=== PATIENT | female | born 1940 | race Caucasian/White ===

== ENCOUNTER 2017-11-13 07:47 | Day surgery (SDC) | payer MEDICARE ==
[~2017-11-13 07:47] MED LIST: Sodium Chloride 0.9% 1000 ML 1,000 ML IV SCH; Sodium Chloride 0.9% 1000 ML 1,000 ML ONE
[2017-11-13] MEDS ORDERED: DEMEROL 50 MG IJ ONE ×2 (07:48)
[2017-11-13] MEDS ORDERED: VERSED 5 MG/5 ML IJ ONE (07:48)
[2017-11-13] MEDS ORDERED: VERSED 5 MG/5 ML IV ONE (07:48)
[2017-11-13 11:42] VITALS: PULSE 54
[2017-11-13 11:50] VITALS: BP 137/78; O2SAT 95
[2017-11-13] MEDS ORDERED: Sodium Chloride 0.9% 10 ML FLUSH Syringe PORT FLUSH PRN (13:02)
--- NOTE | 2017-11-13 14:44 | OP ---
SURGERY DATE/TIME: 11/13/2017919 PREOPERATIVE DIAGNOSIS: Follow up colon cancer. POSTOPERATIVE DIAGNOSIS: Normal anastomosis. The patient had mild diverticulosis. PROCEDURE: Colonoscopy complete. SURGEON: Robert Sanchez M.D. ANESTHESIA: IV sedation 15 minute monitored time. COMPLICATIONS: None. CONDITION: Stable. INDICATION: The patient requiring evaluation. DESCRIPTION OF PROCEDURE: Taken to the endoscopy suite. Left lateral decubitus position. Anal digital examination satisfactory. The scope advanced. This seemed to hang up in the splenic flexure for a while but with care and patience was navigated into the transverse colon side of the splenic flexure and then navigated across the transverse colon to the anastomosis. The anastomosis was normal. There were five or six Nurolon sutures visible and satisfactory. It was wide open. There was no lesion. There were no mucosal lesions during the exam. On circumferential withdrawal there was mild diverticulosis of the sigmoid. The patient tolerated the procedure satisfactorily. Follow up in two years.
== END 2017-11-13 12:00 | disposition home or self-care (01) ==
LOC: SDC 07:47
PROVIDERS: ATTEND Surgery
PROC: 0DJD8ZZ Inspection of Lower Intestinal Tract, Via Natural or Artificial Opening Endoscopic (ICD-10-PCS; principal; 2017-11-13)
DX: K57.90 Diverticulosis of intestine, part unspecified, without perforation or abscess without bleeding (principal); Z85.038 Personal history of other malignant neoplasm of large intestine; E11.9 Type 2 diabetes mellitus without complications; I10 Essential (primary) hypertension; M19.90 Unspecified osteoarthritis, unspecified site; I51.9 Heart disease, unspecified
CPT/HCPCS: 82962; J1642; J2175; J2250

== ENCOUNTER → 2020-11-30 | Day surgery (SDC) | payer MEDICARE ==
--- NOTE | 2020-11-23 07:56 | HP ---
DATE OF SURGERY: 11/30/2020 HISTORY OF PRESENT ILLNESS: The patient is a 80 year-old female presents for follow up colonoscopy. She has a history of colon cancer. She had a right colectomy in [place] four years ago. Last colonoscopy was in 2018 and she had some diverticulosis and no polyps. She denies GI signs or symptoms. PAST MEDICAL HISTORY: Hypertension. Depression. Thyroid. Fibromyalgia. PAST SURGICAL HISTORY: Tonsillectomy. Uterus removed. Right hemicolectomy. ALLERGIES: CODEINE. LISINOPRIL. MEDICATIONS: Propranolol. Hydrochlorothiazide. Thyroid medicine. Cymbalta. FAMILY HISTORY: Thyroid cancer. Colon cancer. Gallbladder disease. SOCIAL HISTORY: None. REVIEW OF SYSTEMS: CONSTITUTIONAL: Denies fever or chills. CHEST: No shortness of breath. CVS: Denies chest pain. ABDOMEN: Denies abdominal pain, nausea, vomiting, diarrhea, constipation or rectal bleeding. PHYSICAL EXAMINATION: GENERAL: No acute distress. CHEST: Nonlabored. No shortness of breath. CVS: Regular rate and rhythm. ABDOMEN: Soft, nontender to palpation. EXTREMITIES: No edema. NEUROLOGIC: Alert. PSYCHIATRIC: Appropriate. IMPRESSION: History of colon cancer. PLAN: Colonoscopy with Dr. Robert Sanchez. As dictated by Belen Bonilla NP.
[~2020-11-30] MED LIST changes: +DEMEROL 50 MG IJ ONE; +Lactated Ringers 1,000 ML IV SCH; -Sodium Chloride 0.9% 1000 ML 1,000 ML IV SCH; -Sodium Chloride 0.9% 1000 ML 1,000 ML ONE; +VERSED 5 MG/5 ML IV ONE
[2020-11-30 10:09] VITALS: O2SAT 93
[2020-11-30 11:02] VITALS: PULSE 63
[2020-11-30 11:48] VITALS: BP 145/68
--- NOTE | 2020-12-01 08:10 | OP ---
SURGERY DATE/TIME: 11/30/2020 0900 PREOPERATIVE DIAGNOSIS: Follow up colon cancer. POSTOPERATIVE DIAGNOSIS: Mild sigmoid diverticulosis, moderate internal hemorrhoids. PROCEDURE: Colonoscopy complete to cecum. SURGEON: Robert Sanchez M.D. [employer] MANAGER: ANAM Garnett student. ANESTHESIA: IV sedation 15 minutes monitored. COMPLICATIONS: None. CONDITION: Stable. INDICATION: A patient requiring evaluation. DESCRIPTION OF PROCEDURE: IV sedation was titrated. It was monitored. The lowest reading was 82%. Comfort level was satisfactory. Anal digital examination satisfactory. Scope introduced. There was moderate internal hemorrhoids. There was mild sigmoid diverticulosis. The anastomosis right colon in the midline. Ileotransverse colostomy was normal. The base was normal. The blind limb was small and was normal. The left transverse colon, splenic, descending was satisfactory, mild diverticulosis sigmoid, rectum, anus. The patient tolerated the procedure satisfactorily. Anticipated follow up three years. She tolerated the procedure well under IV sedation. Withdrawal time was not monitored as there had already been colon resection.
== END | disposition home or self-care (01) ==
LOC: SDC 06:53
PROVIDERS: ATTEND Surgery
DX: Z08 Encounter for follow-up examination after completed treatment for malignant neoplasm (principal); Z85.038 Personal history of other malignant neoplasm of large intestine; Z90.49 Acquired absence of other specified parts of digestive tract; Z80.0 Family history of malignant neoplasm of digestive organs; K57.30 Diverticulosis of large intestine without perforation or abscess without bleeding; K64.8 Other hemorrhoids; I10 Essential (primary) hypertension; Z79.899 Other long term (current) drug therapy
CPT/HCPCS: 82947; J2175; J2250